=== PATIENT | female | born 1985 | race African-American/Black ===

== ENCOUNTER 2019-08-29 15:27 | Emergency (ER) | payer OTHER ==
[~2019-08-29] VITALS: Ht 162.6 cm; Wt 90.9 kg
[2019-08-29 15:35] VITALS: BP 138/72
--- NOTE | 2019-08-29 16:07 | PHYS DOC ---
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 She has lateral ankle pain. Patient rates her pain a 7 out of 10. She denies any radiation of pain or hearing a popping sound. Review of Systems Review of Systems Musculoskeletal: Denies back pain. Left ankle joint pain [] All other systems were reviewed and found to be within normal limits, except as documented in this note. Current Medications Current Medications Current Medications Medications (Trade) Dose Ordered Sig/Alexei Start Time Stop Time Status Last Admin Dose Admin Ibuprofen (Motrin) 600 mg 1X ONCE 08/29/19 16:30 08/29/19 16:31 DC 08/29/19 16:20 600 MG Allergies Allergies Allergies Coded Allergies Type Severity Reaction Last Updated Verified No Known Drug Allergies 08/29/19 No Physical Exam Physical Exam Constitutional: Well developed, well nourished, no acute distress, non-toxic appearance. [] HENT: Normocephalic, atraumatic, bilateral external ears normal, oropharynx moist, no oral exudates, nose normal. [] Eyes: PERRLA, EOMI, conjunctiva normal, no discharge. [] Neck: Normal range of motion, no tenderness, supple, no stridor. [] Cardiovascular:Heart rate regular rhythm, no murmur [] Lungs & Thorax: Bilateral breath sounds clear to auscultation [] Abdomen: Bowel sounds normal, soft, no tenderness, no masses, no pulsatile masses. [] Skin: Warm, dry, no erythema, no rash. [] Back: No tenderness, no CVA tenderness. [] Extremities: No tenderness, no cyanosis, no clubbing, ROM intact, no edema. [] Neurologic: Alert and oriented X 3, normal motor function, normal sensory function, no focal deficits noted. [] Psychologic: Affect normal, judgement normal, mood normal. Normal Physical Exam[] Current Patient Data Vital Signs Vital Signs Date Time Temp Pulse Resp B/P (MAP) Pulse Ox O2 Delivery O2 Flow Rate FiO2 08/29/19 15:35 97.9 73 14 138/72 (94) 99 Room Air 97.9 EKG EKG [] Radiology/Procedures Radiology/Procedures [] Impressions: [facility] [address] [place] [address] IMAGING REPORT Signed PATIENT: LING PUENTES ACCOUNT: [id number] : 1985 LOCATION: ER AGE: 33 SEX: F EXAM STATUS: REG ER ORD. PHYSICIAN: MELISA PERALTA APRN REASON: fall PROCEDURE: ANKLE LEFT 3V Study: ANKLE LEFT 3V Indication: Fall. Comparison: None. Findings: No acute fracture seen at the ankle or involving the visualized foot. No abnormal widening at the medial or lateral gutters. Lack of overlap at the distal syndesmosis is favored positional and there is no radiographically apparent ankle joint effusion or asymmetric edema at the medial or lateral ankles. Mild arthrosis at the ankle. Os peroneum. Impression: No acute fracture or traumatic malalignment seen at the left ankle. Electronically signed by: LIBERTAD LIRA MD (08/29/2019 5:02 PM) [facility] DICTATED and SIGNED BY: LIBERTAD LIRA MD DATE: 08/29/191701 Course & Med Decision Making Course & Med Decision Making Pertinent Labs and Imaging studies reviewed. (See chart for details) Alert and oriented. Ambulatory with steady gait. Patient has full range of motion of the ankle. No tenderness to the lateral ankle where the patient states she's having pain. Denies any numbness or tingling, coolness of the extremity, back pain, neck pain, hitting her head, blood thinners, headache, dizziness. There is no swelling of the joint, no laxity of the joint, no deformity, no bruising. Skin pink warm and dry. Pedal pulses are present. Javy wrap and air splint placed. Patient to follow up with work comp or orthopedic doctor. [] Dragon Disclaimer Dragon Disclaimer This electronic medical record was generated, in whole or in part, using a voice recognition dictation system. Departure Departure Impression: Primary Impression: Ankle pain Disposition: 01 HOME, SELF-CARE Condition: STABLE Referrals: NO PCP (PCP) SARITHA HERMAN MD Patient Instructions: Ankle Sprain Additional Instructions: Follow up with work comp or Orthopedic doctor. Take medication as prescribed. Scripts Ibuprofen (IBUPROFEN) 600 Mg Tablet 600 MG PO PRN Q6HRS PRN for INFLAMMATION, #20 TAB Prov: MELISA PERALTA APRN 08/29/19 Problem Qualifiers Primary Impression: Ankle pain Chronicity: acute Laterality: left Qualified Codes: M25.572 - Pain in left ankle and joints of left foot MELISA PERALTA APRN Aug 29, 2019 16:07
[2019-08-29] MEDS ORDERED: IBUPROFEN 200 MG TABLET. PO ONE (16:30)
--- NOTE | 2019-08-29 17:05 | RAD ---
Study: ANKLE LEFT 3V Indication: Fall. Comparison: None. Findings: No acute fracture seen at the ankle or involving the visualized foot. No abnormal widening at the medial or lateral gutters. Lack of overlap at the distal syndesmosis is favored positional and there is no radiographically apparent ankle joint effusion or asymmetric edema at the medial or lateral ankles. Mild arthrosis at the ankle. Os peroneum. Impression: No acute fracture or traumatic malalignment seen at the left ankle. Electronically signed by: LIBERTAD LIRA MD (08/29/2019 5:02 PM) [facility]
[2019-08-29] MEDS ORDERED: IBUP-1007 PO (17:09)
== END 2019-08-29 17:22 | disposition home or self-care (01) ==
LOC: ER 15:27
DX: M25.572 Pain in left ankle and joints of left foot (principal)
CPT/HCPCS: 73610; 99283; L4350